=== PATIENT | male | born 1980 | race Caucasian/White ===

== ENCOUNTER 2020-06-01 03:45 | Emergency (ER) | payer OTHER ==
[~2020-06-01] VITALS: Ht 182.9 cm; Wt 72.6 kg
[2020-06-01 03:45] VITALS: BP 121/74
[2020-06-01] MEDS ORDERED: HYDROmorphone PFS 2 MG/ML SYR IVP STA (03:50)
--- NOTE | 2020-06-01 03:50 | NUR ---
PT AWA MILAN. TAKEN TO BED 12
[2020-06-01] MEDS ORDERED: ONDANSETRON 4 MG/2 ML VIAL IVP STA (03:55)
--- NOTE | 2020-06-01 04:00 | NUR ---
Pt BIBA from SNF for Rt hip pain s/p fall last night. States pain is 10/10. Pt is able to move all extremities but unable to ambulate. States med hx of MS, taking IV infusions as treatment 2x/year. Denies taking other medications. A/Ox4.
--- NOTE | 2020-06-01 04:19 | NUR ---
Xray at bedside.
--- NOTE | 2020-06-01 04:19 | NUR ---
X-Ray at bedside.
--- NOTE | 2020-06-01 04:50 | NUR ---
CONSENT FORM FOR TRANSFER SIGNED BY PATIENT.
--- NOTE | 2020-06-01 04:52 | NUR ---
EKG BEING PERFORMED AT BEDSIDE.
--- NOTE | 2020-06-01 04:53 | NUR ---
X-Ray at bedside.
[2020-06-01] MEDS ORDERED: HYDROcodone/APAP 10/325 MG 1 TAB TAB PO STA (05:14)
[2020-06-01 05:34] LABS: BASOPHILS # (AUTO) 0.1 K/uL (0.00-0.22); BASOPHILS % (AUTO) 0.6 % (0.0-2.0); HEMOGLOBIN 13.7 g/dL (12.0-18.0); LYMPHOCYTES # (AUTO) 0.8 K/uL (2.0-11.5); LYMPHOCYTES % (AUTO) 5.4 % (20.5-51.1); MEAN CORPUSCULAR HEMOGLOBIN 31 pg (27-31); MEAN CORPUSCULAR HGB CONC 33 g/dL (33-37); MEAN CORPUSCULAR VOLUME 92.5 fL (80-94); MONOCYTES # (AUTO) 1.1 K/uL (0.8-1.0); MONOCYTES % (AUTO) 7.5 % (1.7-9.3); NEUTROPHILS # (AUTO) 12.6 K/uL (1.8-7.7); NEUTROPHILS % (AUTO) 86.5 % (42.2-75.2); PLATELET COUNT (AUTO) 280 K/uL (140-450); RED BLOOD CELL COUNT(AUTO) 4.43 MIL/uL (4.20-6.10); RED CELL DISTRIBUTION WIDTH 12.7 % (11.6-13.7); WHITE BLOOD COUNT (AUTO) 14.6 K/uL (4.8-10.8)
[2020-06-01 05:51] LABS: ALBUMIN 3.9 g/dL (3.4-5.0); ANION GAP 11.9 (8-16); CARBON DIOXIDE 25.2 mmol/L (21-32); CREATININE 0.8 mg/dL (0.6-1.3); POTASSIUM 4.1 mmol/L (3.5-5.1); TOTAL BILIRUBIN 0.4 mg/dL (0.0-1.0)
--- NOTE | 2020-06-01 06:12 | NUR ---
Patient to be transferred to [facility] ER. Is being transferred due to Rt hip fracture. Receiving facility has accepting physician and available space. ER physician has signed transfer form. Patient or responsible libertarian has agreed to transfer and signed form. Patient belongings inventoried and will be sent with patient. Copy of nursing notes, lab reports, EKG, Physicians Orders and X-rays to be sent with patient. Report called to Ioana MONTAÑO at receiving facility. [facility] ambulance service has been called for transfer. ETA is [id number].
--- NOTE | 2020-06-01 07:16 | NUR ---
REPORT AND CONTINUATION OF CARE RECEIVED FROM SABRA BARRIGA.
--- NOTE | 2020-06-01 07:55 | NUR ---
PT RESTING IN POSITION OF COMFORT, SEMI-FOWLERS LEANING TO LEF TSIDE. PT STATES HE FEELS VERY HOT; 2 COLD PACKS PROVIDED PER REQUEST. ALL PT NEEDS MET AT THIS TIME. PROJECT DEVELOPMENT COORDINATOR IN PLACE. BED LOCKED IN LOWEST POSITION, SIDE RAILS X 1, CALL LIGHT IN REACH.
[2020-06-01] MEDS ORDERED: ONDANSETRON 4 MG/2 ML VIAL IVP ONE (08:10)
[2020-06-01] MEDS ORDERED: MORPHINE SULFATE 4 MG/ML SYR IVP ONE (08:10)
--- NOTE | 2020-06-01 08:10 | NUR ---
PT STATES PAIN 01/22. ERMD MADE AWARE. SALT MAKER IN PLACE. BED LOCKED IN LOWEST POSITION, SIDE RAILS X 1, CALL LIGHT IN REACH.
--- NOTE | 2020-06-01 08:15 | NUR ---
PAIN MEDICATION ADMINISTERED PER ORDERS. PT STATES PAIN 6/10 AT THIS TIME. NO NAUSEA. MATERIAL MOVERS IN PLACE. RESPIRATIONS EVEN/UNLABORED. BED LOCKED IN LOWEST POSITION, SIDE RAILS X 1, ALL PT NEEDS MET AT THIS TIME.
--- NOTE | 2020-06-01 08:30 | NUR ---
PT MADE AWARE OF UPDATED 0900 HEAD TRANSFER CLERK TIME. PT RESTING IN POSITION OF COMFORT, LYING ON LEFT SIDE. GUIDANCE ADVISER IN PLACE. RESPIRATIONS EVEN/UNLABORED. BED LOCKED IN LOWEST POSITION, SIDE RAILS X 1, ALL PT NEEDS MET AT THIS TIME.
--- NOTE | 2020-06-01 08:45 | NUR ---
PT RESTING IN POSITION OF COMFORT, SEMI-FOWLERS LEANING TO LEF TSIDE. PT STATES HE FEELS VERY HOT; 2 COLD PACKS PROVIDED PER REQUEST. ALL PT NEEDS MET AT THIS TIME. HAND ALTERATIONS SEAMSTRESS IN PLACE. BED LOCKED IN LOWEST POSITION, SIDE RAILS X 1, CALL LIGHT IN REACH.
--- NOTE | 2020-06-01 09:27 | NUR ---
[facility] AT BEDSIDE AT THIS TIME FOR TRANSPORT.
[2020-06-01] MEDS ORDERED: HYDROmorphone PFS 2 MG/ML SYR IVP ONE (09:30)
--- NOTE | 2020-06-01 09:35 | NUR ---
ERMD MADE AWARE OF PAIN 11/22, ORDERS GIVEN PRIOR TO TRANSPORT TO [facility].
--- NOTE | 2020-06-01 09:35 | NUR ---
PT RESTING IN POSITION OF COMFORT, LYING ON LEFT SIDE. PHYSICIST ASTROPHYSICS IN PLACE. RESPIRATIONS EVEN/UNLABORED. BED LOCKED IN LOWEST POSITION, SIDE RAILS X 1, ALL PT NEEDS MET AT THIS TIME.
[2020-06-01 09:42] VITALS: BP 108/79
--- NOTE | 2020-06-01 09:42 | NUR ---
Patient to be transferred to [facility] ER. Is being transferred due to RT HIP FRACTURE. Receiving facility has accepting physician and available space. ER physician has signed transfer form. Patient or responsible alliance party has agreed to transfer and signed form. Patient belongings inventoried and will be sent with patient. Copy of nursing notes, lab reports, EKG, Physicians Orders and X-rays to be sent with patient. Report called to SABRA THAKKAR at receiving facility. [facility] ambulance service has been called for transfer. ETA is 0900.
== END 2020-06-01 09:42 | disposition designated cancer center or children's hospital (05) ==
LOC: MED 03:45
DX: S72.001A Fracture of unspecified part of neck of right femur, initial encounter for closed fracture (principal); G35 Multiple sclerosis; Z20.822 Contact with and (suspected) exposure to COVID-19; W18.39XA Other fall on same level, initial encounter; Y93.89 Activity, other specified; Y92.89 Other specified places as the place of occurrence of the external cause; Y99.8 Other external cause status
CPT/HCPCS: 36415; 71045; 73502; 73552; 73560; 80053; 85025; 86886; 86900; 86901; 87426; 93005; 96374; 96375; 96376; 99285; J1170; J2270; J2405

== ENCOUNTER 2021-10-28 12:51 | Emergency (ER) | payer OTHER ==
[~2021-10-28] VITALS: Ht 180.3 cm; Wt 80.7 kg
[2021-10-28 13:00] VITALS: BP 125/78
--- NOTE | 2021-10-28 13:02 | NUR ---
DR PEMBERTON AT BEDSIDE
--- NOTE | 2021-10-28 13:09 | NUR ---
[place] [employer] AT BEDSIDE
[2021-10-28] MEDS ORDERED: NACL 0.9% 1,000 ML IV ONE (13:10)
[2021-10-28] MEDS ORDERED: ZIPRASIDONE MESYLATE 20 MG/ML VIAL IM ONE (13:25)
[2021-10-28] MEDS ORDERED: WATER STERILE 10 ML MC ONE (13:28)
[2021-10-28] MEDS ORDERED: diphenhydrAMINE 50 MG/ML VIAL IM ONE (13:55)
[2021-10-28] MEDS ORDERED: HALOPERIDOL IM 5 MG/ML VIAL IM ONE (13:55)
[2021-10-28] MEDS: MIDAZOLAM 5 MG/5 ML VIAL IM ONE ×2 (14:11→14:34)
[2021-10-28 14:54] LABS: BASOPHILS # (AUTO) 0.1 K/uL (0.00-0.22); BASOPHILS % (AUTO) 0.7 % (0.0-2.0); EOSINOPHILS % (AUTO) 0.3 % (0.0-4.0); HEMOGLOBIN 14.6 g/dL (12.0-18.0); LYMPHOCYTES # (AUTO) 2.4 K/uL (2.0-11.5); LYMPHOCYTES % (AUTO) 21.1 % (20.5-51.1); MEAN CORPUSCULAR HEMOGLOBIN 32 pg (27-31); MEAN CORPUSCULAR HGB CONC 33 g/dL (33-37); MEAN CORPUSCULAR VOLUME 95.7 fL (80-94); MONOCYTES % (AUTO) 8.5 % (1.7-9.3); NEUTROPHILS # (AUTO) 7.8 K/uL (1.8-7.7); NEUTROPHILS % (AUTO) 69.4 % (42.2-75.2); PLATELET COUNT (AUTO) 264 K/uL (140-450); RED CELL DISTRIBUTION WIDTH 13.1 % (11.6-13.7); WHITE BLOOD COUNT (AUTO) 11.3 K/uL (4.8-10.8)
[2021-10-28 16:08] LABS: ALBUMIN 4.2 g/dL (3.4-5.0); ANION GAP 20.1 (8-16); CARBON DIOXIDE 22.8 mmol/L (21-32); CREATININE 0.7 mg/dL (0.6-1.3); POTASSIUM 3.9 mmol/L (3.5-5.1); TOTAL BILIRUBIN 0.7 mg/dL (0.0-1.0)
[2021-10-28 17:00] VITALS: BP_DIAS 57
[2021-10-28] MEDS ORDERED: LIDOCAINE MPF 1% 10 MG/ML VIAL INJ ONE (17:15)
--- NOTE | 2021-10-28 18:20 | NUR ---
TORIBIO CHOU AT BEDSIDE FOR DERMABOND OF LEFT EYEBROW LAC
--- NOTE | 2021-10-28 18:33 | NUR ---
CALLED PTS CONTACT ON FILE, CAROLE TO ARRANGE TRANSPORT. STATED SHE WILL PICK HIM UP.
--- NOTE | 2021-10-28 18:39 | NUR ---
PT NOW A/OX4, ABLE TO VERBALIZE WHERE HE IS, THE DATE, HIS NAME AND SITUATION
--- NOTE | 2021-10-28 18:40 | NUR ---
Patient discharged with v/s stable. Written and verbal after care instructions given and explained. Patient verbalized understanding. Wheel Chair Assisted with to home. All questions addressed prior to discharge. Advised to follow up with PMD.
--- NOTE | 2021-10-28 19:00 | NUR ---
PT P/U BY CAROLE, W/C ASSISTED TO CAR
[2021-10-28 21:02] LABS: BARBITURATE, URINE NEGATIVE ng/ml (NEG <=200); BENZODIAZEPINE, URINE NEGATIVE ng/mL (NEG <=200)
[2021-10-28 21:03] LABS: CANNABINOID, URINE POSITIVE ng/mL (NEG <=50); COCAINE, URINE NEGATIVE ng/mL (NEG <=300); OPIATE, URINE NEGATIVE ng/mL (NEG <=2000); PHENCYCLIDINE SCREEN,URINE NEGATIVE ng/mL (NEG <=25)
== END 2021-10-28 18:40 | disposition home or self-care (01) ==
LOC: MED 12:51
DX: S01.112A Laceration without foreign body of left eyelid and periocular area, initial encounter (principal); F10.129 Alcohol abuse with intoxication, unspecified; V89.2XXA Person injured in unspecified motor-vehicle accident, traffic, initial encounter; Y93.89 Activity, other specified; Y92.410 Unspecified street and highway as the place of occurrence of the external cause; Y99.8 Other external cause status
CPT/HCPCS: 36415; 70450; 80053; 80305; 81002; 85025; 90471; 90715; 96360; 96361; 96372; 99284; G0482; J1200; J1630; J2250; J3486; J2001; J7030

== ENCOUNTER 2022-03-03 22:43 | Emergency (ER) | payer OTHER ==
[~2022-03-03] VITALS: Ht 180.3 cm; Wt 70.3 kg
[2022-03-03 22:57] VITALS: BP 133/75
--- NOTE | 2022-03-03 22:59 | NUR ---
BIBA TAKEN TO BED #12
--- NOTE | 2022-03-03 23:01 | NUR ---
Patient A/Ox4, resting comfortably in bed, chest rise and fall symmetrical, no s/s of distress, seizure pads in place on bedrails. Patient states he "is not drunk."
--- NOTE | 2022-03-03 23:05 | NUR ---
DR REGAN EXAMINING PT
--- NOTE | 2022-03-03 23:06 | NUR ---
Patient A/Ox4, resting comfortably in bed, chest rise and fall symmetrical, no s/s of distress, seizure pads in place on bedrails. Patient states he "is not drunk." Addendum: 03/04/22 at 0020 by [email or web address] Patient A/Ox4, resting comfortably in bed, chest rise and fall symmetrical, no s/s of distress, seizure pads in place on bedrails.
[2022-03-03] MEDS ORDERED: LIDOCAINE 1% 500 MG/ 50 ML VIAL INJ ONE ×2 (23:10→23:30)
[2022-03-03] MEDS ORDERED: LIDOCAINE MPF 1% 5 ML ONE ×2 (23:26→23:33)
--- NOTE | 2022-03-04 00:12 | NUR ---
Patient A/Ox4, resting comfortably in bed, chest rise and fall symmetrical, no s/s of distress, seizure pads in place on bedrails.
[2022-03-04 00:15] VITALS: BP 125/72
--- NOTE | 2022-03-04 00:23 | NUR ---
Vending Machine Refiller called transportation for patient. Patient waiting for transport.
--- NOTE | 2022-03-04 00:23 | NUR ---
Patient discharged with v/s stable. Written and verbal after care instructions given and explained. Patient verbalized understanding. Ambulatory with steady gait. All questions addressed prior to discharge. Advised to follow up with PMD.
--- NOTE | 2022-03-04 00:27 | NUR ---
Patient safely left in transport to [facility], destination confirmed by driver utility worker.
== END 2022-03-04 00:15 | disposition home or self-care (01) ==
LOC: MED 22:43
DX: S01.112A Laceration without foreign body of left eyelid and periocular area, initial encounter (principal); W18.30XA Fall on same level, unspecified, initial encounter; Y93.89 Activity, other specified; Y92.89 Other specified places as the place of occurrence of the external cause; Y99.8 Other external cause status
CPT/HCPCS: 12011; 99283; J2001; 12001

== ENCOUNTER 2022-04-04 14:01 | Emergency (ER) | payer OTHER ==
[~2022-04-04] VITALS: Ht 180.3 cm; Wt 72.6 kg
[2022-04-04 14:18] VITALS: BP 130/53
--- NOTE | 2022-04-04 14:20 | NUR ---
41/M WHEELCHAIRED INTO ED REQUESTING SUTURE EVAL. PT STATES HAVING SUTURE DONE 2 WKS AGO ON THE LEFT EYEBROW. PT STATES SEVERAL SUTURES FELL OFF DURING SHOWER AND WOULD LIKE REEVALUATION OF THE SUTURE SITE. DENIES ANY COMPLAINTS AT THIS TIME. PT WHEELCHAIRED BACK TO LOBBY PMH: MS
--- NOTE | 2022-04-04 14:38 | NUR ---
per pa, pt was not in lobby, no answer at this time.
[2022-04-04 14:52] VITALS: BP 130/53
== END 2022-04-04 14:38 | disposition left against medical advice (07) ==
LOC: MED 14:01
DX: S01.112D Laceration without foreign body of left eyelid and periocular area, subsequent encounter (principal); Z53.21 Procedure and treatment not carried out due to patient leaving prior to being seen by health care provider; X58.XXXD Exposure to other specified factors, subsequent encounter

== ENCOUNTER 2022-08-25 19:45 | Emergency (ER) | payer OTHER ==
[~2022-08-25] VITALS: Ht 180.3 cm; Wt 74.8 kg
[2022-08-25 19:48] VITALS: BP 159/97
--- NOTE | 2022-08-25 19:49 | NUR ---
PT AWA BLS. TAKEN TO BED 5
--- NOTE | 2022-08-25 19:50 | NUR ---
PT STATED "I WANNA "
--- NOTE | 2022-08-25 19:50 | NUR ---
41 Y/O M PRESENTS WITH A MECHANICAL FALL AT HOME FROM A DISABLED SENIOR APARTMENTS WHEN THE ANATOMICAL EMBALMER OF THE APARTMENTS FOUND HIM ON THE FLOOR. UPON ARRIVAL PT WAS CRYING ON SCENE WITH NO TEARS TATING "I WANNA ." PT STATED HE DRANK FOUR BOTTLES OF VODKA BUT WAS RESPONSIVE CLEARLY, QUICKLY, AND EFFECTIVELY." PT IS AMBULATORY WITH CANE, a&oX4, DENIED ANY PAIN OR NVD. PMH-PT DENIES nka
[2022-08-25 20:20] LABS: BASOPHILS # (AUTO) 0.2 K/uL (0.00-0.22); BASOPHILS % (AUTO) 2.2 % (0.0-2.0); EOSINOPHILS % (AUTO) 0.6 % (0.0-4.0); HEMATOCRIT 39.9 % (36-52); HEMOGLOBIN 13.4 g/dL (12.0-18.0); LYMPHOCYTES # (AUTO) 2.3 K/uL (2.0-11.5); MEAN CORPUSCULAR HEMOGLOBIN 32 pg (27-31); MEAN CORPUSCULAR HGB CONC 34 g/dL (33-37); MEAN CORPUSCULAR VOLUME 95.2 fL (80-94); MONOCYTES # (AUTO) 0.8 K/uL (0.8-1.0); MONOCYTES % (AUTO) 10.5 % (1.7-9.3); NEUTROPHILS # (AUTO) 4.6 K/uL (1.8-7.7); NEUTROPHILS % (AUTO) 57.7 % (42.2-75.2); PLATELET COUNT (AUTO) 349 K/uL (140-450); RED BLOOD CELL COUNT(AUTO) 4.19 MIL/uL (4.20-6.10); RED CELL DISTRIBUTION WIDTH 16.2 % (11.6-13.7); WHITE BLOOD COUNT (AUTO) 7.9 K/uL (4.8-10.8)
[2022-08-25 20:42] LABS: ALBUMIN 3.8 g/dL (3.4-5.0); ANION GAP 14.1 (8-16); ASPARTATE AMINOTRANSFERASE 54 U/L (15-37); CARBON DIOXIDE 27.7 mmol/L (21-32); CHLORIDE 107 mmol/L (98-107); CREATININE 0.8 mg/dL (0.6-1.3); GFR ARICAN-AMERICAN 136 mL/min (>90); GLUCOSE 88 mg/dL (74-106); POTASSIUM 3.8 mmol/L (3.5-5.1); SODIUM SERUM 145 mmol/L (136-145); TOTAL BILIRUBIN 0.4 mg/dL (0.0-1.0); UREA NITROGEN, BLOOD 14 mg/dL (7-18)
[2022-08-25 20:43] LABS: ACETAMINOPHEN < 0.5 ug/ml (10-30); SALICYLATE < 2.8 mg/dL (2.8-20.0)
--- NOTE | 2022-08-25 20:45 | NUR ---
PT STATED "I WANNA GO HOME"
--- NOTE | 2022-08-25 21:00 | NUR ---
PT UNABLE TO GIVE URINE, ER NOTIFIED.
--- NOTE | 2022-08-25 21:30 | NUR ---
PT STATED "WHE CAN I GO HOME IM FINE"
== END 2022-08-25 22:59 | disposition home or self-care (01) ==
LOC: MED 19:45
DX: F10.129 Alcohol abuse with intoxication, unspecified (principal); R45.851 Suicidal ideations
CPT/HCPCS: 36415; 80053; 85025; 99283; G0480; G0482

== ENCOUNTER 2022-08-31 15:26 | Emergency (ER) | payer OTHER ==
[~2022-08-31] VITALS: Ht 182.9 cm; Wt 73.7 kg
[2022-08-31 15:37] VITALS: BP 136/74
[2022-08-31] MEDS ORDERED: OLANZapine 10 MG VIAL IM ONE ×3 (15:55→20:50)
--- NOTE | 2022-08-31 15:58 | NUR ---
pt swabbed for covid(arie/novel). handed to lab
[2022-08-31] MEDS ORDERED: WATER STERILE 10 ML MC ONE (16:04)
--- NOTE | 2022-08-31 16:04 | NUR ---
lab at bedside
[2022-08-31 16:20] LABS: BASOPHILS # (AUTO) 0.2 K/uL (0.00-0.22); BASOPHILS % (AUTO) 2.2 % (0.0-2.0); EOSINOPHILS # (AUTO) 0.2 K/uL (0-0.4); EOSINOPHILS % (AUTO) 1.9 % (0.0-4.0); HEMATOCRIT 37.9 % (36-52); HEMOGLOBIN 12.7 g/dL (12.0-18.0); LYMPHOCYTES # (AUTO) 2.7 K/uL (2.0-11.5); LYMPHOCYTES % (AUTO) 31.1 % (20.5-51.1); MEAN CORPUSCULAR HEMOGLOBIN 33 pg (27-31); MEAN CORPUSCULAR HGB CONC 34 g/dL (33-37); MONOCYTES # (AUTO) 1.1 K/uL (0.8-1.0); MONOCYTES % (AUTO) 12.2 % (1.7-9.3); NEUTROPHILS # (AUTO) 4.5 K/uL (1.8-7.7); NEUTROPHILS % (AUTO) 52.6 % (42.2-75.2); PLATELET COUNT (AUTO) 289 K/uL (140-450); RED BLOOD CELL COUNT(AUTO) 3.91 MIL/uL (4.20-6.10); RED CELL DISTRIBUTION WIDTH 16.6 % (11.6-13.7); WHITE BLOOD COUNT (AUTO) 8.6 K/uL (4.8-10.8)
--- NOTE | 2022-08-31 16:30 | NUR ---
41YO MALE PT [facility] DENTIST OFFICE ON 5150 HOLD-DTS. PER EMS, DENTAL STAFF STATE PT WALKED IN "ASKING FOR HELP" AND STATED " HE DOESNT WANT TO LIVE ANYMORE". ALSO REPORT PT WAS FOUND W/ SMALL EMPTY ALCOHOL BOTTLES. AT ARRIVAL, PT AAOX1 TO NAME W/ DELAYED MUMBLED SPEECH. ADMITS TO DRINKING "4 SHOTS" AND DENYING SI THIS TIME. PT UNABLE TO RECALL PRIOR EVENTS. ROOM STRIPPED OF POTENTIAL HARMFUL ITEMS. PT IN VIEW. BED AT LOWEST POSITION, BED RAILS UPX2. HX: UNABLE TO OBTAIN ALLERGIES: UNABLE TO OBTAIN
[2022-08-31 16:44] LABS: ACETAMINOPHEN < 0.5 ug/ml (10-30); ALBUMIN 3.7 g/dL (3.4-5.0); ANION GAP 12.9 (8-16); ASPARTATE AMINOTRANSFERASE 74 U/L (15-37); CARBON DIOXIDE 28.9 mmol/L (21-32); CHLORIDE 106 mmol/L (98-107); CREATININE 0.8 mg/dL (0.6-1.3); GFR ARICAN-AMERICAN 136 mL/min (>90); GLUCOSE 92 mg/dL (74-106); POTASSIUM 3.8 mmol/L (3.5-5.1); SALICYLATE < 2.8 mg/dL (2.8-20.0); SODIUM SERUM 144 mmol/L (136-145); TOTAL BILIRUBIN 0.2 mg/dL (0.0-1.0); UREA NITROGEN, BLOOD 10 mg/dL (7-18)
[2022-08-31 18:24] LABS: BARBITURATE, URINE NEGATIVE ng/ml (NEG <=200); BENZODIAZEPINE, URINE NEGATIVE ng/mL (NEG <=200); CANNABINOID, URINE NEGATIVE ng/mL (NEG <=50); COCAINE, URINE NEGATIVE ng/mL (NEG <=300); OPIATE, URINE NEGATIVE ng/mL (NEG <=2000); PHENCYCLIDINE SCREEN,URINE NEGATIVE ng/mL (NEG <=25)
[2022-08-31] MEDS ORDERED: NACL 0.9% 1,000 ML IV ONE (18:30)
--- NOTE | 2022-08-31 19:07 | NUR ---
pt provided w/ dinner. pt awake and eating in bed
--- NOTE | 2022-08-31 19:28 | NUR ---
REPORT GIVEN TO AGUSTIN MONTAÑO. TRANSFER OF CARE AT THIS TIME
--- NOTE | 2022-08-31 19:46 | NUR ---
Patient resting in bed, A/Ox4, chest rise and fall symmetrical, no c/o pain or s/s of distress, all belongings accounted for and removed. Patient is on 51/50 hold. Patient finished eating dinner. Addendum: 09/01/22 at 0038 by [email or web address] Amendment undone in ED - 09/01/22 at 0041 by [email or web address] Patient resting in bed, A/Ox4, chest rise and fall symmetrical, no c/o pain or s/s of distress, all belongings accounted for and removed. Patient is on 1:1, 5150 hold. Patient currently denies SI/HI. Patient finished eating dinner. Addendum: 09/01/22 at 0042 by [email or web address] Patient resting in bed, A/Ox4, chest rise and fall symmetrical, no c/o pain or s/s of distress, all belongings accounted for and removed. Patient is on 5150 hold. Patient finished eating dinner. Patient currently denies SI/HI. Patient offered toileting, patient declined both.
[2022-08-31] MEDS ORDERED: ZIPRASIDONE MESYLATE 20 MG/ML VIAL IM ONE ×2 (20:53→20:55)
--- NOTE | 2022-08-31 20:55 | NUR ---
Patient becoming agitated, threatening to walk out and patient cursing. Dr. Gardner verbally informed. Dr. Gardner verbalized understanding, orders received.
--- NOTE | 2022-08-31 21:30 | NUR ---
Patient resting in bed, A/Ox4, chest rise and fall symmetrical, no c/o pain or s/s of distress, all belongings accounted for and removed. Patient is on 1:1 5150 hold. Addendum: 09/01/22 at 0038 by [email or web address] Amendment undone in ED - 09/01/22 at 004 by [email or web address] Patient resting in bed, A/Ox4, chest rise and fall symmetrical, no c/o pain or s/s of distress, all belongings accounted for and removed. Patient is on 1: 5150 hold. Patient currently denies SI/HI. Addendum: 09/01/22 at 004 by [email or web address] Patient resting in bed, A/Ox4, chest rise and fall symmetrical, no c/o pain or s/s of distress, all belongings accounted for and removed. Patient is on 1:1, 5150 hold. Patient currently denies SI/HI. Patient offered fluids and toileting, patient declined both.
--- NOTE | 2022-08-31 22:50 | NUR ---
Patient resting in bed, A/Ox4, chest rise and fall symmetrical, no c/o pain or s/s of distress, all belongings accounted for and removed. Patient is on 1:0 hold. Patient currently denies SI/HI. Addendum: 09/01/22 at 0042 by [email or web address] Patient resting in bed, A/Ox4, chest rise and fall symmetrical, no c/o pain or s/s of distress, all belongings accounted for and removed. Patient is on 1:5149 hold. Patient currently denies SI/HI. Patient offered fluids and toileting, patient declined both.
--- NOTE | 2022-09-01 00:38 | NUR ---
Patient resting in bed, A/Ox4, chest rise and fall symmetrical, no c/o pain or s/s of distress, all belongings accounted for and removed. Patient is on 1:0 hold. Patient currently denies SI/HI. Addendum: 09/01/22 at 0042 by [email or web address] Patient resting in bed, A/Ox4, chest rise and fall symmetrical, no c/o pain or s/s of distress, all belongings accounted for and removed. Patient is on 1:5149 hold. Patient currently denies SI/HI. Patient offered fluids and toileting, patient declined both.
--- NOTE | 2022-09-01 02:00 | NUR ---
Patient resting in bed, A/Ox4, chest rise and fall symmetrical, no c/o pain or s/s of distress, all belongings accounted for and removed. Patient is on 1:1, 5150 hold. Patient currently denies SI/HI. Patient offered fluids and toileting, patient declined both.
--- NOTE | 2022-09-01 07:30 | NUR ---
Change of shift report given to AM shift Nurse Funmilayo MONTAÑO. AM shift Nurse Funmilayo MONTAÑO verbalized understanding of report, no further questions.
--- NOTE | 2022-09-01 08:45 | NUR ---
PSYCHIATRIST SPEAKING TO PT
--- NOTE | 2022-09-01 09:01 | NUR ---
PT WILL REMAIN ON 5150 HOLD. PSYCHIATRIST WILL START PT ON MEDICATION FOR DEPRESSION
[2022-09-01] MEDS: FLUoxetine 20 MG CAP PO SCH (09:20)
--- NOTE | 2022-09-01 09:32 | NUR ---
PT MOVED TO ER BED 5. [address]
--- NOTE | 2022-09-01 12:00 | NUR ---
PT MEDICALLY CLEARED BY DR MCKEON
--- NOTE | 2022-09-01 12:30 | NUR ---
pt eating lunch in [facility] pending placement. nad. safety maintained.
--- NOTE | 2022-09-01 16:00 | NUR ---
pt calm cooperative. denies si. pending plaement. no changes noted. safety maintained.
--- NOTE | 2022-09-01 18:08 | NUR ---
pt eating dinner in [facility] no changes noted. pt calm and cooperative. nad. safety maintained.
[2022-09-01] MEDS ORDERED: KETOROLAC 60 MG/2 ML VIAL IM ONE (19:35)
[2022-09-01] MEDS ORDERED: QUEtiapine FUMARATE 25 MG TAB PO SCH (21:00)
--- NOTE | 2022-09-01 22:44 | NUR ---
PT AWAKE IN BED WITH HOB ELEVATED. PT IS A&OX4. RESP EVEN AND UNLABORED. FOOD PROVIDED TO PT. ANSWERING ALL QUESTIONS APPROPRITELY. PENDING PLACEMENT FOR TRANSFER. Q15 SI CHECKS PT IS WITHIN VIEW FROM NURSES STATION DHARMESH MS
--- NOTE | 2022-09-02 03:14 | NUR ---
PT SLEEPING RESP EVEN AND UNLABORED. PT IS PENDING PLACEMENT FOR TRANSFER
--- NOTE | 2022-09-02 06:10 | NUR ---
Patient discharged with v/s stable. Written and verbal after care instructions given and explained. Patient verbalized understanding. Police with in custody. All questions addressed prior to discharge. Advised to follow up with PMD.
--- NOTE | 2022-09-02 08:11 | NUR ---
Patient was offered breakfast tray. Patient is sitting up eating dinner.
[2022-09-02] MEDS: FLUoxetine 20 MG CAP PO SCH (09:07)
--- NOTE | 2022-09-02 10:16 | NUR ---
Patient was taken to restroom to clean up. Patient was being monitored by staff at all times.
--- NOTE | 2022-09-02 12:40 | NUR ---
PT PROVIDED WITH LUNCH TRAY. PT EATING QUIETLY IN BED, ALL NEEDS MET AT THIS TIME.
--- NOTE | 2022-09-02 16:01 | NUR ---
PT CLEARED FOR DISCHARGE BY DR MCKEON AND BY DR WALLER. Patient discharged with v/s stable. Written and verbal after care instructions ABOUT SUICIDAL FEELINGS given and explained. Patient alert, oriented and verbalized understanding of instructions. Ambulatory with steady gait. All questions addressed prior to discharge. ID band removed. Patient advised to follow up with PMD. Rx of PROZAC, ACAMPROSATE CALCIUM, AND SEROQUEL given. Patient educated on indication of medication including possible reaction and side effects. Opportunity to ask questions provided and answered.
[2022-09-02 16:05] VITALS: BP 123/88
[2022-09-02] MEDS ORDERED: FLUO10CA21 PO (16:05)
[2022-09-02] MEDS ORDERED: ACAM333T PO (16:05)
[2022-09-02] MEDS ORDERED: QUET50TA PO (16:05)
--- NOTE | 2022-09-02 16:05 | NUR ---
PT PROVIDED WITH MENTAL HEALTH AND ALCOHOL ABUSE RESOURCES
== END 2022-09-02 16:05 | disposition home or self-care (01) ==
LOC: MED 15:26
DX: R45.851 Suicidal ideations (principal); Z20.822 Contact with and (suspected) exposure to COVID-19; F10.129 Alcohol abuse with intoxication, unspecified; Y90.9 Presence of alcohol in blood, level not specified
CPT/HCPCS: 36415; 80053; 80305; 85025; 87426; 87635; 96360; 96372; 99291; C9803; G0480; G0482; J1885; J3486; J3490; J7030; U0005